=== PATIENT | female | born 1980 | race Caucasian/White ===

== ENCOUNTER 2017-04-14 06:39 | Inpatient (IN) | payer OTHER ==
[~2017-04-14] VITALS: Ht 170.3 cm; Wt 92.3 kg
[2017-06-02] VITALS (19 sets, daily range): BP systolic 103–140; BP diastolic 54–83; PULSE 51–86; TEMP 97.4–97.6
[2017-06-02] MEDS ORDERED: PRENATAL1 TA7 PO (06:36)
[2017-06-02 07:26] LABS: BASO # 0.1 (0.0-0.2); BASO % 0.5 % (0.0-2.0); EOS # 0.1 (0.0-0.7); EOS % 0.7 % (0-4.0); GRAN # 6.7 (1.4-6.5); GRAN % 60.6 % (42.2-75.2); HEMATOCRIT 38.4 % (37.0-47.0); HEMOGLOBIN 13.2 g/dl (12.5-16.0); LYMPH # 3.4 (1.2-3.4); LYMPH % 30.6 % (20.0-51.0); MEAN CELL VOLUME 87 fl (80.0-100.0); MEAN CORPUSCULAR HEMOGLOBIN 30 pg (27.0-31.0); MEAN CORPUSCULAR HGB CONC 34 g/dl (33.0-37.0); MEAN PLATELET VOLUME 11.8 fl (7.4-10.4); MONO # 0.8 (0.1-0.6); MONO % 7.2 % (1.7-9.3); PLATELET COUNT 260 K/mm3 (130-400); RED BLOOD COUNT 4.44 M/mm3 (4.10-5.30); REDCELL DISTRIBUTION WIDTH-CV 13.1 % (11.5-14.5)
[2017-06-03 00:15] VITALS: BP 123/68; PULSE 61
[2017-06-03 04:00] VITALS: BP 112/73; PULSE 66; TEMP 98.7
[2017-06-03 07:30] VITALS: BP 104/64; PULSE 60; TEMP 97.5
[2017-06-03 07:57] LABS: BASO # 0.1 (0.0-0.2); BASO % 0.5 % (0.0-2.0); EOS # 0.1 (0.0-0.7); EOS % 0.5 % (0-4.0); GRAN % 76.1 % (42.2-75.2); LYMPH # 2.2 (1.2-3.4); LYMPH % 16.9 % (20.0-51.0); MEAN CELL VOLUME 91 fl (80.0-100.0); MEAN CORPUSCULAR HGB CONC 33 g/dl (33.0-37.0); MEAN PLATELET VOLUME 11.3 fl (7.4-10.4); MONO # 0.7 (0.1-0.6); MONO % 5.5 % (1.7-9.3); PLATELET COUNT 215 K/mm3 (130-400); REDCELL DISTRIBUTION WIDTH-CV 13.7 % (11.5-14.5); WHITE BLOOD COUNT 13.2 K/mm3 (4.8-10.8)
[2017-06-03 07:58] LABS: HEMATOCRIT 35.3 % (37.0-47.0); HEMOGLOBIN 11.7 g/dl (12.5-16.0); MEAN CORPUSCULAR HEMOGLOBIN 30 pg (27.0-31.0)
[2017-06-03 16:05] VITALS: BP 115/74; PULSE 68; TEMP 97.6
[2017-06-03 20:00] VITALS: BP 122/77; PULSE 66; TEMP 97.9
[2017-06-04 07:10] VITALS: BP 108/77; PULSE 59; TEMP 97.9
[2017-06-04] MEDS ORDERED: PERCOCET 325 MG1 TA2 PO (08:39)
[2017-06-04] MEDS ORDERED: IBU800 M1 PO (08:39)
== END 2017-06-04 12:00 | disposition home or self-care (01) | DRG 766 ==
LOC: OB 06-02 05:36 → LDR 06-02 07:50 → OB 06-04 12:00 → LDRO 06-14 06:39 → EDSTATUS 06-14 07:49 → LDRO 06-14 14:55
PROVIDERS: Student in an Organized Health Care Education/Training Program
PROC: 10D00Z1 Extraction of Products of Conception, Low, Open Approach (ICD-10-PCS; principal; 2017-06-02)
PROC: 0UB50ZZ Excision of Right Fallopian Tube, Open Approach (ICD-10-PCS; 2017-06-02)
DX: O34.211 Maternal care for low transverse scar from previous cesarean delivery (principal); N85.8 Other specified noninflammatory disorders of uterus; O99.824 Streptococcus B carrier state complicating childbirth; O34.13 Maternal care for benign tumor of corpus uteri, third trimester; D25.9 Leiomyoma of uterus, unspecified; O69.81X0 Labor and delivery complicated by cord around neck, without compression, not applicable or unspecified; Z40.09 Encounter for prophylactic removal of other organ; Z3A.39 39 weeks gestation of pregnancy; Z37.0 Single live birth; Z90.79 Acquired absence of other genital organ(s); Z90.721 Acquired absence of ovaries, unilateral
CPT/HCPCS: J0690; J1885; J2270; J2370; J2405; J2590; J7120

== ENCOUNTER 2017-06-28 13:30 | Emergency (ER) | payer OTHER ==
[~2017-06-28] VITALS: Ht 170.2 cm; Wt 80.9 kg
[~2017-06-28 13:30] MED LIST: IBU800 M1 PO; PERCOCET 325 MG1 TA2 PO; PRENATAL1 TA7 PO
[2017-06-28 13:32] VITALS: TEMP 97.1
[2017-06-28] MEDS ORDERED: ATIVAN 1MG T1 MG/TAB PO (15:18)
[2017-06-28 16:48] VITALS: BP 127/94; PULSE 75
== END 2017-06-28 16:45 | disposition home or self-care (01) ==
LOC: COL.ER 13:30
DX: O99.345 Other mental disorders complicating the puerperium (principal); F32.9 Major depressive disorder, single episode, unspecified; F41.9 Anxiety disorder, unspecified